=== PATIENT | female | born 1960 | race Two or more races ===

== ENCOUNTER 2016-07-04 13:45 | Outpatient (CLI) | payer SELFPAY | END 2016-07-04 23:59 | disposition home or self-care (01) | LOC: WOU 13:45 | PROVIDERS: ATTEND Podiatrist Foot & Ankle Surgery | DX: S91.051A Open bite, right ankle, initial encounter (principal); L03.115 Cellulitis of right lower limb; W54.0XXA Bitten by dog, initial encounter; Y92.89 Other specified places as the place of occurrence of the external cause; R60.0 Localized edema; Z86.73 Personal history of transient ischemic attack (TIA), and cerebral infarction without residual deficits | CPT/HCPCS: 99205; A6209; A6402; G0463 ==

== ENCOUNTER 2016-07-11 13:07 | Outpatient (CLI) | payer SELFPAY | END 2016-07-11 23:59 | disposition home or self-care (01) | LOC: WOU 13:07 | PROVIDERS: ATTEND Podiatrist Foot & Ankle Surgery | DX: S91.051A Open bite, right ankle, initial encounter (principal); L03.115 Cellulitis of right lower limb; W54.0XXA Bitten by dog, initial encounter; Z87.891 Personal history of nicotine dependence; Z86.73 Personal history of transient ischemic attack (TIA), and cerebral infarction without residual deficits; Z88.2 Allergy status to sulfonamides; Z79.82 Long term (current) use of aspirin | CPT/HCPCS: 11042; A6209 ×2; A6402 ==

== ENCOUNTER 2016-07-29 12:15 | Outpatient (CLI) | payer SELFPAY | END 2016-07-29 23:59 | disposition home or self-care (01) | LOC: WOU 12:15 | PROVIDERS: ATTEND Podiatrist Foot & Ankle Surgery | DX: S91.0 Open wound of ankle (principal); W54.0XXS Bitten by dog, sequela; L97.319 Non-pressure chronic ulcer of right ankle with unspecified severity; M77.9 Enthesopathy, unspecified; R60.0 Localized edema | CPT/HCPCS: 99213; A6402; G0463 ==

== ENCOUNTER 2016-10-08 12:55 | Outpatient (CLI) | payer SELFPAY | END 2016-10-08 23:59 | disposition home or self-care (01) | LOC: WOU 12:55 | PROVIDERS: ATTEND Podiatrist Foot & Ankle Surgery | DX: L90.5 Scar conditions and fibrosis of skin (principal); S91.0 Open wound of ankle; W54.0XXS Bitten by dog, sequela; M77.9 Enthesopathy, unspecified; M62.81 Muscle weakness (generalized); R60.0 Localized edema | CPT/HCPCS: G0463 ==